=== PATIENT | female | born 1965 | race African-American/Black ===

== ENCOUNTER 2017-11-12 10:33 | Emergency (ER) | payer OTHER | END 2017-11-12 11:37 | disposition home or self-care (01) | LOC: ERS 10:33 | DX: M62.838 Other muscle spasm (principal); E78.5 Hyperlipidemia, unspecified; I10 Essential (primary) hypertension; V43.63XA Car passenger injured in collision with pick-up truck in traffic accident, initial encounter; F41.9 Anxiety disorder, unspecified | CPT/HCPCS: 99283 ==